=== PATIENT | female | born 1985 | race Two or more races ===

== ENCOUNTER 2019-10-30 20:30 | Emergency (ER) | payer MEDICAID, OTHER ==
[~2019-10-30] VITALS: Ht 157.5 cm; Wt 76.2 kg
--- NOTE | 2019-10-30 21:50 | NUR ---
Dr. Donis at bedside for MSE
[2019-10-30] MEDS ORDERED: IBUPROFEN 600 MG TABLET ONE (22:12)
[2019-10-30] MEDS ORDERED: IBUPROFEN 600 MG TABLET PO ONE (22:15)
--- NOTE | 2019-10-30 22:23 | NUR ---
Patient discharged to home in stable conditon. Written and verbal after care instructions given. Patient verbalizes understanding of instructions. Patient ambulating with steady gait.
[2019-10-30 22:24] VITALS: BP 136/83
== END 2019-10-30 22:23 | disposition home or self-care (01) ==
LOC: ER 20:33
DX: H60.92 Unspecified otitis externa, left ear (principal); J06.9 Acute upper respiratory infection, unspecified
CPT/HCPCS: A4663